=== PATIENT | female | born 1970 | race Caucasian/White ===

== ENCOUNTER 2023-07-09 17:54 | Emergency (ER) | payer OTHER, SELFPAY ==
[2023-07-09 17:59] VITALS: BP 108/86; PULSE 85; RESP 14; TEMP 36.8; O2SAT 98
--- NOTE | 2023-07-09 18:41 | ED.VIS.LOWEX ---
HPI History of Present Illness HPI Narrative: Patient presents with left ankle injury that occurred today. Patient states she stepped in a pothole and inverted her ankle. Patient states she has been unable to bear weight since the injury. Patient describes her pain as sharp. Patient states her pain is worse with certain movements. Patient denies any paresthesias or weakness. Patient denies any head injury or loss of consciousness. Patient denies any other injuries. Chief Complaint: Lower Extremity Injury Informant: patient Occured/Mechanism Mechanism/Context: Yes fall Onset/Context/Timing Onset: Today Context: Sudden Onset Timing: Continuous Quality of Pain: Sharp Location: Left ankle Worsened by: Weightbearing, movement Relieved by: Rest Associated Symptoms Associated Symptoms: Negative for Parasthesia, Weakness or Loss of Funtion PFSH [facility] Medical History (Updated 07/09/23 @ 19:[address] Lukasz Muñoz, ) Epilepsy Home Medications dexlansoprazole 60 mg capsule,biphase delayed release 60 mg PO DAILY 07/09/23 [History Last Taken Unknown] famotidine 40 mg tablet 40 mg PO QHS 07/09/23 [History Last Taken Unknown] meloxicam 7.5 mg tablet 7.5 mg PO BID PRN 07/09/23 [History Last Taken Unknown] ondansetron 4 mg disintegrating tablet 4 mg PO Q8H PRN PRN Nausea #10 tabs 07/09/23 [Rx Last Taken Unknown] oxycodone-acetaminophen 5 mg-325 mg tablet 1 tab PO Q6H PRN PRN Pain 3 days #12 TABLETS 07/09/23 [Rx Last Taken Unknown] Allergy/AdvReac Type Severity Reaction Status Date / Time amoxicillin Allergy Rash Verified 07/09/23 17:59 cephalexin [From Keflex] Allergy Rash Verified 07/09/23 17:59 Iodinated Contrast Media Allergy Anaphylaxis Verified 07/09/23 17:59 phenytoin [From Dilantin] Allergy Bleeding Verified 07/09/23 17:59 acetaminophen [From Vicodin] AdvReac Nausea Verified 07/09/23 17:59 codeine AdvReac NAUSEA Verified 07/09/23 17:59 hydrocodone [From Vicodin] AdvReac Nausea Verified 07/09/23 17:59 morphine AdvReac Nausea Verified 07/09/23 17:59 Surgical History (Updated 07/09/23 @ 18:[address] Lukasz Muñoz DO) History of hysterectomy Hx of section Hx of lithotripsy Social History Smoking Status: Current every day smoker tobacco type: cigarettes ROS ROS ED Constitutional Constitutional ED: Denies chills or fever(s) Eyes Eyes: Denies blurry vision or change in vision ENT ENT ED: Denies rhinorrhea or sore throat Cardiovascular Cardiovascular: Denies chest pain or palpitations Respiratory/Chest Respiratory/Chest: Denies cough or dyspnea Gastrointestinal Gastrointestinal: Reports nausea; Denies vomiting Genitourinary Genitourinary ED: Denies dysuria or hematuria Musculoskeletal Musculoskeletal: Denies back pain or neck pain Integumentary Denies abscess or rash Neurologic Neurologic: Denies headache(s) or weakness Allergic/Immunologic Allergic/Immunologic ED: Denies mouth swelling or urticaria EXAM Physical Exam Const Vital Signs: 07/09/23 17:59 Temperature 98.2 F Temperature Source Temporal Pulse Rate 85 Respiratory Rate 14 Blood Pressure 108/86 H Blood Pressure Mean 93 Pulse Ox 98 Oxygen Delivery Method Room Air Positive well nourished and well developed General Appearance ED: well developed and NAD HEENT Reports moist mucous membranes Neck full ROM and supple Extremity Extremity Narrative: There is tenderness and edema over the lateral aspect of the left ankle. There is no obvious deformity noted. There is no bony crepitance or step-off noted. Range of motion was limited in all motions of the left ankle secondary to pain. There is no tenderness over the fifth metatarsal. There is no tenderness over the proximal fibula. Pedal pulses are equal bilaterally. Sensation was intact to light touch in all digits. Capillary refill was less than 2 seconds in all digits. Neuro oriented x3, CN's II-XII intact bilaterally, moves all extremities and no sensory deficits noted Sensorium / Orientation: alert Motor Exam: strength 5/5 throughout Psych mental status grossly normal MDM MDM MDM Narrative Medical decision making narrative: Differential diagnosis includes fracture, sprain, and contusion. X-rays of the left ankle will be obtained to assess for fracture. Radiography Diagnostic Testing: Clinical Impression(s) from Imaging Studies Ankle X-Ray 07/09/23 19:00 IMPRESSION: Grossman A lateral malleolus fracture with soft tissue swelling. Electronically Signed: Artur Vivas MD ([place]) at 19:18 EST , X-rays of the left ankle were obtained. There are 3 views. On my independent interpretation, there is an avulsion fracture of the tip of the lateral malleolus. There is soft tissue swelling noted. Radiologist also interpreted the x-rays and agrees. Treatment and Re-Evaluation Narrative: Patient was given a dose of Tylenol here. Patient was advised of her findings. Patient was instructed to ice and elevate the left ankle. Patient was given a walking boot. Patient was instructed to follow-up with her primary care physician in 5 to 7 days. Patient understood and was agreeable with the plan. All questions were answered. Discharge Plan Triage Chief Complaint: Lower Extremity Injury ED Provider: Lukasz Muñoz Dx/Rx/DC Orders Clinical Impression: Avulsion fracture of lateral malleolus of left fibula, Fall Instructions: ED Ankle Fracture, Distal Fibula Prescriptions: New oxycodone-acetaminophen [oxycodone-acetaminophen] 5-325 mg tablet 1 tab PO Q6H PRN PRN (Reason: Pain) 3 Days Qty: 12 0RF ondansetron [ondansetron] 4 mg tablet,disintegrating 4 mg PO Q8H PRN PRN (Reason: Nausea) Qty: 10 0RF No Action dexlansoprazole 60 mg capsule,biphase delayed releas 60 mg PO DAILY Patient Comments: TAKE ONE CAPSULE BY MOUTH EVERY DAY meloxicam 7.5 mg tablet 7.5 mg PO BID PRN Patient Comments: TAKE ONE TABLET BY MOUTH TWICE DAILY NEEDED famotidine 40 mg tablet 40 mg PO QHS Patient Comments: TAKE 1 TABLET BY MOUTH AT BEDTIME Primary Care Provider: SELENA CHANEY Referrals: SELENA CHANEY MD [Primary Care Provider] - 5-7 Days Disposition Disposition: Home, Self Care
[2023-07-09 18:55] VITALS: BMI 32.4
--- NOTE | 2023-07-09 19:00 | RAD_ITS ---
STUDY: X-RAY - LEFT ANKLE REASON FOR EXAM: Female, 53 years old. Injury/Pain TECHNIQUE: 3 view(s) of the ankle. COMPARISON: None. FINDINGS: Normal visualized distal tibia and fibula. There is cortical irregularity along the inferior margin of the lateral malleolus with overlying soft tissue swelling. Normal tibiotalar articulation and ankle mortise. Small calcaneal spur. The visualized subtalar, talonavicular, calcaneocuboid and tarsal articulations are normal. The soft tissue structures are otherwise unremarkable. RAD/Ankle min 3 Views IMPRESSION: Grossman A lateral malleolus fracture with soft tissue swelling. Electronically Signed: Artur Vivas MD ([place]) at 19:18 EST ,
[2023-07-09] MEDS: Acetaminophen 500 MG Tablet 1000 MG PO (19:20)
[2023-07-09 20:21] VITALS: BMI 32.3
[2023-07-09 20:22] VITALS: PULSE 68; RESP 16; TEMP 36.6; O2SAT 98
== END 2023-07-09 20:29 | disposition home or self-care (01) ==
PROVIDERS: Emergency Provider Emergency Medicine; PCP Family Medicine; Visit Provider Emergency Medicine
DX: S82.62XA Displaced fracture of lateral malleolus of left fibula, initial encounter for closed fracture (principal); F17.210 Nicotine dependence, cigarettes, uncomplicated; W19.XXXA Unspecified fall, initial encounter
CPT/HCPCS: 73610; 99284